=== PATIENT | female | born 1950 | race Caucasian/White ===

== ENCOUNTER 2016-05-07 12:33 | Emergency (ER) | payer BC ==
[2016-05-07] MEDS ORDERED: NS 0.9% 1000 ML* 1,000 ML IV ONE (13:34)
[2016-05-07 13:49] LABS: Hematocrit 38 % (35-47); Mean Corpuscular HGB Conc 35 g/dl (31-36); Mean Corpuscular Hemoglobin 32 pg (27-31); Mean Corpuscular Volume 91 fL (80-97); Mean Platelet Volume 7 um3 (7.4-10.4); Red Blood Count 4.13 10^6/ul (4.0-5.4); Red Cell Distribution Width 14 % (10.5-15); White Blood Count 8.9 10^3/ul (3.5-10.8)
[2016-05-07 14:03] LABS: Albumin 4.4 g/dL (3.2-5.2); BUN/Creatinine Ratio 21.2 (8-20); C Reactive Protein 1.29 mg/L (< 5.00); Calcium 10.1 mg/dL (8.6-10.3); EGFR African American 59.3 (>60); EGFR Non-African American 46.1 (>60); Globulin 2.9 g/dL (2-4); Magnesium 1.3 mg/dL (1.9-2.7); Potassium 3.3 mmol/L (3.5-5.0); Total Bilirubin 0.3 mg/dL (0.2-1.0); Total Protein 7.3 g/dL (6.4-8.9)
--- NOTE | 2016-05-07 14:09 | RAD ---
INDICATION: Tachycardia. COMPARISON: Comparison is made with a prior chest x-ray study from July 19, 2013. TECHNIQUE: A portable view of the chest was obtained. FINDINGS: Cardiac and mediastinal contours appear to be within normal limits. The lungs are underinflated and clear. No pleural effusion is seen. IMPRESSION: NO EVIDENCE FOR ACUTE DISEASE.
[2016-05-07 14:16] LABS: Troponin I 0.04 ng/mL (<0.04)
[2016-05-07 14:18] LABS: Urine Bacteria Absent (Absent); Urine Bilirubin Negative (Negative); Urine Glucose Negative (Negative); Urine Nitrite Negative (Negative)
[2016-05-07 14:26] LABS: TSH (Thyroid Stimulating Horm) 6.39 mcIU/mL (0.34-5.60)
[2016-05-07] MEDS ORDERED: Magnesium Sulfate 2 GM IV* 2 GM/50 ML BAG IVPB ONE (14:53)
[2016-05-07] MEDS ORDERED: Potassium Chlor TAB* 20 MEQ TAB.ER PO ONE (14:53)
--- NOTE | 2016-05-07 15:47 | ED ---
Gopi Ly Matthew, scribed for Benitez Lee MD on 05/07/16 at 1340 . Palpitations / Dysrhythmia - HPI Summary HPI Summary: A 65 y/o female presents to the ED with palpitations since 10:00 this morning. The patient has a Hx of AFib. The symptoms began while the patient was working and gradually worsened, which prompted her to present to the ED. Associated symptoms include general weakness. The patient denies chest pain, lightheadedness, SOB, and calf pain. She has a Hx of diabetes. She woke-up asymptomatic this morning. - History of Current Complaint Chief Complaint: EDDysrhythmPalp Time Seen by Provider: 05/07/16 13:11 Hx Obtained From: Patient Onset/Duration: Gradual Onset, Lasting Hours, Resolved Timing: Constant Severity Initially: Moderate Severity Currently: None Character: Fast Aggravating: Exertion Associated Signs & Symptoms: Negative - Allergy/Home Medications Allergies/Adverse Reactions: Allergies Allergy/AdvReac Type Severity Reaction Status Date / Time Morphine Allergy Severe Difficulty Verified 01/24/15 13:18 Breathing PMH/Surg Hx/FS Hx/Imm Hx Endocrine/Hematology History: Reports: Hx Diabetes, Hx Anemia Denies: Hx Anticoagulant Therapy, Hx Blood Disorders, Hx Blood Transfusions, Hx Bone Marrow Disease, Hx Systemic Lupus Erythematosus, Hx Sickle Cell Disease , Hx Thyroid Disease, Hx Unexplained Bleeding Cardiovascular History: Reports: Hx Hypertension GI History: Reports: Hx Gall Bladder Disease - Gall Stones (gall bladder removed in 1994, Hx Gastroesophageal Reflux Disease, Hx Irritable Bowel Denies: Hx Cirrhosis, Hx Crohn's Disease, Hx Diverticulosis, Hx Gastrointestinal Bleed, Hx Hiatal Hernia, Hx Jaundice, Hx Obstructive Bowel, Hx Ileostomy, Hx Pyloric Stenosis, Hx Ulcer Musculoskeletal History: Reports: Hx Arthritis - neck, shoulders, and back, Hx Back Problems - pain from arthritis Denies: Hx Rheumatoid Arthritis, Hx Bursitis, Hx Congenital Bone Abnormalities, Hx Fibromyalgia, Hx Gout, Hx Orthopedic Injury, Hx Osteoporosis, Hx Scoliosis, Hx Tendonitis Sensory History: Reports: Hx Contacts or Glasses, Hx Vision Problem Denies: Hx Cataracts, Hx Legally Blind, Hx Macular Degeneration, Hx Deafness , Hx Hearing Aid, Hx Hearing Problem Opthamlomology History: Reports: Hx Contacts or Glasses, Hx Vision Problem Denies: Hx Cataracts, Hx Legally Blind, Hx Macular Degeneration Neurological History: Reports: Other Neuro Impairments/Disorders - HAS INJURED RT SI JOINT PREVIOUSLY Psychiatric History: Reports: Hx Anxiety, Hx Depression, Hx Community Mental Health Tx Denies: Hx Attention Deficit Hyperactivity Disorder, Hx Eating Disorder, Hx Panic Disorder, Hx Post Traumatic Stress Disorder, Hx Inpatient Treatment, Hx Schizophrenia, Hx Bipolar Disorder, Hx Suicide Attempt, Hx of Violent Episodes Against Others, Hx Substance Abuse - Cancer History Hx Chemotherapy: No Hx Radiation Therapy: No - Surgical History Surgery Procedure, Year, and Place: CARPAL TUNNEL, TUBAL LIGATION, CHOLECYSTECTOMY Hx Anesthesia Reactions: Yes - morphine: patient has trouble breathing Infectious Disease History: No Infectious Disease History: Denies: Hx Hepatitis, Traveled Outside the [place] in Last 30 Days - Family History Family History: No FHx of breast CA. - Social History Alcohol Use: Rare Alcohol Amount: Less than once a month Substance Use Type: Reports: None Smoking Status (MU): Never Smoked Tobacco Review of Systems Constitutional: Negative Eyes: Negative ENT: Negative Positive: Palpitations. Negative: Chest Pain Respiratory: Negative Negative: Shortness Of Breath Gastrointestinal: Negative Genitourinary: Negative Musculoskeletal: Negative Negative: Edema - pedal Skin: Negative Positive: Weakness - general weakness. Negative: Numbness Psychological: Normal All Other Systems Reviewed And Are Negative: Yes Physical Exam Triage Information Reviewed: Yes Vital Signs On Initial Exam: Initial Vitals Temp Pulse Resp BP Pulse Ox 97.8 F 134 20 172/103 97 05/07/16 12:35 05/07/16 12:35 05/07/16 12:35 05/07/16 12:35 05/07/16 12:35 Vital Signs Reviewed: Yes Appearance: Positive: Well-Appearing, No Pain Distress Skin: Positive: Warm, Skin Color Reflects Adequate Perfusion, Dry Head/Face: Positive: Normal Head/Face Inspection Eyes: Positive: EOMI, NUZHAT ENT: Positive: Normal ENT inspection Neck: Positive: Supple, Nontender Respiratory/Lung Sounds: Positive: Clear to Auscultation, Breath Sounds Present Cardiovascular: Positive: Tachycardia Abdomen Description: Positive: Nontender, Soft Bowel Sounds: Positive: Present Musculoskeletal: Positive: Normal, Strength/ROM Intact, Other - No Pedal Edema or calf tenderness. Negative: Edema Left, Edema Right Neurological: Positive: Normal, Alert, Oriented to Person Place, Time Psychiatric: Positive: Normal, Affect/Mood Appropriate Diagnostics - Vital Signs Vital Signs Temp Pulse Resp BP Pulse Ox 05/07/16 12:35 97.8 F 134 20 172/103 97 - Laboratory Lab Results: Lab Results 05/07/16 05/07/16 05/07/16 Range/Units 13:15 13:15 13:15 WBC 8.9 (3.5-10.8) 10^3/ul RBC 4.13 (4.0-5.4) 10^6/ul Hgb 13.0 (12.0-16.0) g/dl Hct 38 (35-47) % MCV 91 (80-97) fL MCH 32 H (27-31) pg MCHC 35 (31-36) g/dl RDW 14 (10.5-15) % Plt Count 252 (150-450) 10^3/ul MPV 7 L (7.4-10.4) um3 Neut % (Auto) 66.9 (38-83) % Lymph % (Auto) 25.1 (25-47) % [place] % (Auto) 4.7 (1-9) % Eos % (Auto) 3.0 (0-6) % Baso % (Auto) 0.3 (0-2) % Absolute Neuts (auto) 6.0 (1.5-7.7) 10^3/ul Absolute Lymphs (auto) 2.2 (1.0-4.8) 10^3/ul Absolute Monos (auto) 0.4 (0-0.8) 10^3/ul Absolute Eos (auto) 0.3 (0-0.6) 10^3/ul Absolute Basos (auto) 0 (0-0.2) 10^3/ul Absolute Nucleated RBC 0 10^3/ul Nucleated RBC % 0 Sodium 137 (133-145) mmol/L Potassium 3.3 L (3.5-5.0) mmol/L Chloride 99 L (101-111) mmol/L Carbon Dioxide 29 (22-32) mmol/L Anion Gap 9 (2-11) mmol/L BUN 25 H (6-24) mg/dL Creatinine 1.18 H (0.51-0.95) mg/dL Est GFR ( Amer) 59.3 (>60) Est GFR (Non-Af Amer) 46.1 (>60) BUN/Creatinine Ratio 21.2 H (8-20) Glucose 209 H (70-100) mg/dL Lactic Acid 1.8 (0.5-2.0) mmol/L Calcium 10.1 (8.6-10.3) mg/dL Magnesium 1.3 L (1.9-2.7) mg/dL Total Bilirubin 0.30 (0.2-1.0) mg/dL AST 17 (13-39) U/L ALT 45 (7-52) U/L Alkaline Phosphatase 119 H (34-104) U/L Total Creatine Kinase 116 (10-223) U/L CK-MB (CK-2) 3.6 (0.6-6.3) ng/mL Troponin I 0.04 H* (<0.04) ng/mL C-Reactive Protein 1.29 (< 5.00) mg/L B-Natriuretic Peptide ( - 100) pg/mL Total Protein 7.3 (6.4-8.9) g/dL Albumin 4.4 (3.2-5.2) g/dL Globulin 2.9 (2-4) g/dL Albumin/Globulin Ratio 1.5 (1-3) Lipase 18 (11.0-82.0) U/L TSH 6.39 H (0.34-5.60) mcIU/mL Urine Color Urine Appearance Urine pH (5-9) Ur Specific [place] (1.010-1.030) Urine Protein (Negative) Urine Ketones (Negative) Urine Blood (Negative) Urine Nitrate (Negative) Urine Bilirubin (Negative) Urine Urobilinogen (Negative) Ur Leukocyte Esterase (Negative) Urine WBC (Auto) (Absent) Urine RBC (Auto) (Absent) Ur Squamous Epith Cells (Absent) Urine Bacteria (Absent) Urine Glucose (Negative) Urine Ascorbic Acid (Negative) 05/07/16 05/07/16 Range/Units 13:15 13:17 WBC (3.5-10.8) 10^3/ul RBC (4.0-5.4) 10^6/ul Hgb (12.0-16.0) g/dl Hct (35-47) % MCV (80-97) fL MCH (27-31) pg MCHC (31-36) g/dl RDW (10.5-15) % Plt Count (150-450) 10^3/ul MPV (7.4-10.4) um3 Neut % (Auto) (38-83) % Lymph % (Auto) (25-47) % [place] % (Auto) (1-9) % Eos % (Auto) (0-6) % Baso % (Auto) (0-2) % Absolute Neuts (auto) (1.5-7.7) 10^3/ul Absolute Lymphs (auto) (1.0-4.8) 10^3/ul Absolute Monos (auto) (0-0.8) 10^3/ul Absolute Eos (auto) (0-0.6) 10^3/ul Absolute Basos (auto) (0-0.2) 10^3/ul Absolute Nucleated RBC 10^3/ul Nucleated RBC % Sodium (133-145) mmol/L Potassium (3.5-5.0) mmol/L Chloride (101-111) mmol/L Carbon Dioxide (22-32) mmol/L Anion Gap (2-11) mmol/L BUN (6-24) mg/dL Creatinine (0.51-0.95) mg/dL Est GFR ( Amer) (>60) Est GFR (Non-Af Amer) (>60) BUN/Creatinine Ratio (8-20) Glucose (70-100) mg/dL Lactic Acid (0.5-2.0) mmol/L Calcium (8.6-10.3) mg/dL Magnesium (1.9-2.7) mg/dL Total Bilirubin (0.2-1.0) mg/dL AST (13-39) U/L ALT (7-52) U/L Alkaline Phosphatase (34-104) U/L Total Creatine Kinase (10-223) U/L CK-MB (CK-2) (0.6-6.3) ng/mL Troponin I (<0.04) ng/mL C-Reactive Protein (< 5.00) mg/L B-Natriuretic Peptide 52 ( - 100) pg/mL Total Protein (6.4-8.9) g/dL Albumin (3.2-5.2) g/dL Globulin (2-4) g/dL Albumin/Globulin Ratio (1-3) Lipase (11.0-82.0) U/L TSH (0.34-5.60) mcIU/mL Urine Color Yellow Urine Appearance Cloudy Urine pH 5.0 (5-9) Ur Specific [place] 1.010 (1.010-1.030) Urine Protein Negative (Negative) Urine Ketones Negative (Negative) Urine Blood Negative (Negative) Urine Nitrate Negative (Negative) Urine Bilirubin Negative (Negative) Urine Urobilinogen Negative (Negative) Ur Leukocyte Esterase 3+ H (Negative) Urine WBC (Auto) 1+(6-10/hpf) H (Absent) Urine RBC (Auto) Trace(0-2/hpf) (Absent) Ur Squamous Epith Cells Present H (Absent) Urine Bacteria Absent (Absent) Urine Glucose Negative (Negative) Urine Ascorbic Acid * H (Negative) Result Diagrams: 05/07/16 13:15 05/07/16 13:15 Lab Statement: Any lab studies that have been ordered have been reviewed, and results considered in the medical decision making process. - Radiology CXR Xray Interpretation: No Acute Changes - IMPRESSION: NO EVIDENCE FOR ACUTE DISEASE. Radiology Interpretation Completed By: Radiologist - EKG 12:39 Cardiac Rate: Tachycardia - 120 bpm EKG Interpretation: Junctional Tachycardia; LVH 14:59 Cardiac Rate: NL - 86 bpm EKG Rhythm: Sinus Rhythm ST Segment: Normal Ectopy: None Course/Dx - Course Assessment/Plan: PATIENT CONVERTED IN ED. SUPPLEMENTAL MAGNESIUM AND POTASSIUM GIVEN IN ED. DISCUSSED RESULTS WITH PATIENT AND CARDIOLOGY, TO INCLUDE THE TROPONIN OF 0.04. PATIENT HAD NO CHEST PAIN, FEELS WELL, NO REPEAT TROPONIN IN ED. DISCHARGE HOME STABLE. - Diagnoses Provider Diagnoses: Atrial flutter, Hypokalemia, Hypomagnesemia - Physician Notifications Discussed Care Of Patient With: Dr. Chen (Cardiology) at 15:28 - Notified of poly's history and since the patient is not c/o of chest pain and has converted to NSR does not believe a second troponin is necessary. Discharge - Discharge Plan Condition: Stable Disposition: HOME Patient Education Materials: Atrial Flutter (ED) Referrals: Hank Condon MD [Primary Care Provider] - Additional Instructions: FOLLOW UP WITH YOUR FRUIT FARMER, DR GE. YOU POTASSIUM AND MAGNESIUM BLOOD LEVELS ARE LOW. CONTINUE TAKING YOUR POTASSIUM. TAKE SUPPLEMENTAL MAGNESIUM OVER THE COUNTER. DISCUSS THIS WITH DR GE. RETURN TO THE EMERGENCY DEPARTMENT FOR ANY WORSENING OF YOUR CONDITION; CHEST PAIN, PALPITATIONS, SHORTNESS OF BREATH, YOU FEEL ILL OR QUESTIONS OR CONCERNS. The documentation as recorded by the Gopi valencia Matthew accurately reflects the service I personally performed and the decisions made by me, Benitez Lee MD.
[2016-05-07 17:57] VITALS: BP 146/80
== END 2016-05-07 17:57 | disposition home or self-care (01) ==
LOC: ED 12:33
DX: I48.92 Unspecified atrial flutter (principal); E87.6 Hypokalemia; E83.42 Hypomagnesemia; Z88.5 Allergy status to narcotic agent; I10 Essential (primary) hypertension; K21.9 Gastro-esophageal reflux disease without esophagitis
CPT/HCPCS: 36415; 71010; 80053; 81003; 81015; 82550; 82553; 83605; 83690; 83735; 83880; 84443; 84484; 85025; 86140; 87077; 87086; 93005; 96360; 96374; 99282; A9270-GY; J3475

== ENCOUNTER → 2017-07-28 11:13 | Day surgery (SDC) | payer BC ==
[~2017-07-28 11:13] MED LIST: Buffered Lidocaine 0.9% SYRIN* 5 ML/SYR SYRINGE INTRADERM ONE; Buffered Lidocaine 0.9% SYRIN* 5 ML/SYR SYRINGE ONE; Dexamethasone IV* 4 MG/ML 1 ML (4 MG) ONE; DiMENhydriNATE IV* 50 MG/ML VIAL IV PUSH PRN; Ketorolac INJ* 30 MG/ML 1 ML VIAL ONE; Lidocaine 2% PF * 5 ML VIAL ONE; Midazolam* 1 MG/ML 5 ML VIAL (5 MG) ONE; NS 0.9% 1000 ML* 1,000 ML IV SCH; Naloxone* 0.4 MG/ML 1 ML VIAL IV PRN; Ondansetron INJ* 2 MG/ML VIAL ONE; PROCHLORPERAZINE INJ 5 MG/ML 2 ML VIAL IV PRN; Propofol* 10 MG/ML 20 ML BTL IV PUSH ONE; ceFAZolin 2 GM PREMIX (*) 2 GM/50 ML BAG IVPB ONE; fentaNYL* 50 MCG/ML 2 ML VIAL (100 MCG VIAL) IV PRN; fentaNYL* 50 MCG/ML 2 ML VIAL (100 MCG VIAL) ONE; oxyCODONE/Acetamin 5/325 MG* TAB PO PRN
[2017-07-28 15:37] VITALS: BP 144/75
--- NOTE | 2017-07-29 01:48 | OP ---
DATE OF OPERATION: 07/28/17 [facility] DATE OF : 52 SURGEON: Yemi Hollins M.D. HUMAN RESOURCE INTERN: AMI Marr ANESTHESIOLOGIST: Dr. Crandall. ANESTHESIA: Local MAC. PRE-OP DIAGNOSIS: Right volar wrist ganglion cyst. POST-OP DIAGNOSIS: Deep right wrist and volar indeterminate soft tissue mass. OPERATIVE PROCEDURE: Excision of deep 2 x 2.5 cm volar wrist soft tissue mass. EBL: 2 mL. COMPLICATIONS: None. FINDINGS: The mass was not a typical volar wrist ganglion cyst rather an indeterminate deep soft tissue mass. DESCRIPTION OF PROCEDURE: Alba was seen in the preoperative holding area. The correct site, side, and procedure were identified. We came back to the operating room. The arm was prepped and draped in the usual fashion. I infiltrated 0.25% Marcaine around the periphery of the field, but not directly into or overlying the mass. The area was then prepped and draped in the usual fashion. I exsanguinated the arm with the Esmarch and the tourniquet was inflated to 250 mmHg. I made a Lazy-S incision right over the mass. Dissection was carried down sharply and the soft tissue overlying the mass was incised. Care was taken to protect and preserve the radial artery throughout the entirety of the case. Once I encountered the mass, it was clear it was not a typical ganglion cyst. I went ahead and worked around the periphery. The mass was firmly adherent to the periosteum of the volar distal radius as well as to the pronator quadratus fascia. To excise the mass, I had to excise the periosteum of the volar distal radius. I was able to preserve the distal 2 or 3 mm of volar capsular ligaments of the rim of the distal radius. I went ahead and performed a marginal excision peeling the mass off the volar distal radius bone distally. The mass was handed off in its entirety as a specimen. The curette and rongeur were used to excise any remaining potential fragments. The wound was copiously irrigated. The skin was closed with 4-0 Monocryl and Steri- Strips. Tourniquet was let down during splint placement, and she was woken up and taken to recovery room in stable condition. [id number]/[facility] #: [id number] [facility]
== END | disposition home or self-care (01) ==
LOC: OR 11:13
PROVIDERS: ATTEND Orthopaedic Surgery Hand Surgery
DX: M67.431 Ganglion, right wrist (principal); E11.9 Type 2 diabetes mellitus without complications; Z79.84 Long term (current) use of oral hypoglycemic drugs; I10 Essential (primary) hypertension; F41.8 Other specified anxiety disorders; K21.9 Gastro-esophageal reflux disease without esophagitis; I48.91 Unspecified atrial fibrillation; Z87.891 Personal history of nicotine dependence; M65.4 Radial styloid tenosynovitis [de Quervain]
CPT/HCPCS: 88304; J0690; J1100; J1885; J2250; J2405; J2704; J3010